=== PATIENT | female | born 2000 | race Caucasian/White ===

== ENCOUNTER 2018-01-29 12:10 | Emergency (ER) | payer MEDICAID ==
[2018-01-29 12:35] VITALS: BP 139/88
--- NOTE | 2018-01-29 12:35 | EDPHY ---
H & P Time Seen by Provider: 01/29/18 12:29 HPI/ROS: Chief Complaint: Right leg rash HPI: 18-year-old woman developed a rash on her right lower leg over the last day or 2. Patient states she had a mosquito bite there was itching it. Since that time she has had redness and some crusting. She has concerns infected. No other complaints at this time ROS: 10 point Review of Systems is negative except as noted in the HPI. PMH: Denies Social History: No smoking, no alcohol, no recreational drug use Family History: non-contributory Physical Exam: General: Awake, alert, no acute distress Right leg: She has got area of excoriated skin with some surrounding erythema on her right stearns. It is warm to touch. There is no lymphangitic streaking. She is neurologically intact distally. Cap refills less than 2 sec. Sensations intact. Skin: Per right leg exam - Medical/Surgical History Other PMH: med hx-none. surg-none - Social History Smoking Status: Never smoked Constitutional: Initial Vital Signs Temperature (C) 36.7 C 01/29/18 12:33 Heart Rate 98 01/29/18 12:33 Respiratory Rate 16 01/29/18 12:33 Blood Pressure 139/88 H 01/29/18 12:33 O2 Sat (%) 99 01/29/18 12:33 O2 Delivery Mode Room Air Allergies/Adverse Reactions: No Known Allergies Allergy (Verified 09/06/15 12:33) Home Medications: Medication Instructions Recorded Cephalexin [Keflex (*)] 500 mg PO Q6H #40 cap 01/29/18 Medical Decision Making ED Course/Re-evaluation: 18-year-old with cellulitis on her right stearns. Will start on Keflex. Will refer to [facility] for outpatient follow-up. Departure - Departure Disposition: Home, Routine, Self-Care Clinical Impression: Cellulitis Condition: Good Instructions: Cellulitis (ED) Additional Instructions: Please take your full course of antibiotics. Follow up at [facility] and 4-5 days for recheck. Return to the emergency department for increasing redness, pain, burning, fevers , chills, or any other concerns. Referrals: PAULINE KHALIL,. [Clinic] - As per Instructions Prescriptions: Cephalexin [Keflex (*)] 500 mg PO Q6H #40 cap
[2018-01-29] MEDS ORDERED: CEPHALEXIN 500 MG CAP PO ONE (12:51)
== END 2018-01-29 13:04 | disposition home or self-care (01) ==
LOC: CED 12:10
DX: L03.115 Cellulitis of right lower limb (principal)

== ENCOUNTER 2018-03-15 12:37 | Inpatient (IN) | payer MEDICAID ==
[2018-03-15] MEDS ORDERED: BISACODYL 10 MG SUPP PR PRN (17:17)
[2018-03-15] MEDS ORDERED: hydrOXYzine HCL 25 MG TAB PO PRN (17:17)
--- NOTE | 2018-03-15 18:44 | GHP ---
POST ADMISSION PHYSICIAN EVALUATION AND REHABILITATION TREATMENT PLAN DATE OF ADMISSION: 03/15/2018 REFERRING FACILITY: [facility] REFERRING PHYSICIAN: Bertrand Lyons MD IMPAIRMENT GROUP: 3.4. DATE OF ONSET: 02/25/2018. CONSULTING PHYSICIANS: She was managed by the Hospitalist Service. She was seen by the Psychiatry Service. REHABLITATION DIAGNOSIS: Guillain-Friedensburg syndrome. ETIOLOGIC DIAGNOSIS: Guillain-Friedensburg syndrome. HISTORY OF PRESENT ILLNESS: This patient is a 18-year-old woman with a history of IV drug abuse who was admitted to [facility] on 2017, with weakness, numbness, and tingling in the lower and upper extremities and difficulty walking. Evaluation included MR imaging of the spine and the brain, HIV testing and lumbar puncture and analysis of cerebrospinal fluid. She was diagnosed with Guillain-Friedensburg syndrome. She was treated with two 5-day courses of IVIG, initially on 02/28/2018. Hospital course was complicated by acute on chronic low back pain requiring pain control, which was a complex topic given her history of addiction and anxiety and panic attacks. She was on IV opiates initially, and these were discontinued 1 day prior to her discharge to inpatient rehabilitation. OTHER LABS AND STUDIES: CBC done on the day of admission was normal but for an elevated white blood cell count at 13.15. Comprehensive metabolic profile was normal. Creatine kinase was very slightly elevated. Urine drug screen was positive for opiates, but otherwise negative for substances of abuse. Serum toxicology screen was negative for acetaminophen or alcohol. She had normal salicylate level. Erythrocyte sedimentation rate was 14. test was negative. HIV was nonreactive. Whole blood lactate was normal at 1.4. T4 was normal. TSH was normal. She had an elevated CSF protein at 171. Urinalysis was cloudy with bacteria present and small leukocyte esterase. I do not have the results of a urine culture, but presumably that was negative. She eventually had a good response to IVIG and has recovered considerable strength and can now ambulate. PRECAUTIONS: She is a fall risk. ACTIVE COMORBIDITIES: She has no tier 1, tier 2, or tier 3 comorbidities. PAST MEDICAL HISTORY: 1. Hematoma on her right medial ankle caused by attempted drug injection. 2. History of IV drug abuse with heroin. 3. Bacterial vaginosis. 4. Cellulitis. 5. Chlamydia STD PAST SURGICAL HISTORY: She has not had prior surgery. PREHOSPITAL MEDICATIONS: I do not have a list. ADMISSION MEDICATIONS: 1. Acetaminophen 1000 mg p.o. q.8 hours p.r.n. 2. Amitriptyline 50 mg p.o. at bedtime. 3. Bisacodyl suppository 10 mg [place] p.r.n. 4. Clonazepam 1 mg p.o. twice daily p.r.n. 5. Enoxaparin 40 mg subcutaneous daily. 6. Gabapentin 600 mg p.o. three times daily. 7. Hydromorphone 2 mg p.o. q.6 hours p.r.n. 8. Hydroxyzine 25 mg p.o. q.6 hours p.r.n. 9. Ibuprofen 400 mg p.o. q.8 hours p.r.n. 10. Lidocaine patch apply daily. 11. Melatonin 5 mg p.o. at bedtime. 12. Nicotine patch 14 mg transdermal daily. 13. Oxycodone continuous release 10 mg p.o. q.12 hours. 14. Polyethylene glycol 17 g p.o. daily p.r.n. 15. Senna/docusate 1 p.o. twice daily. 16. Venlafaxine 37.5 mg p.o. twice daily. ALLERGIES: There are no known drug allergies. PSYCHOSOCIAL HISTORY: She has a history of heroin addiction and IV drug abuse. She has a history of tobacco smoking. 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 She lives with her mother. She has a boyfriend. FAMILY HISTORY: Noncontributory. REVIEW OF SYSTEMS: She reports considerable increased strength and is able to ambulate using a walker. She has mid back pain. She says it is stabbing in nature, but does not radiate. It is not positional. She says it is at a constant 8/10. She denies opiate side effects including no constipation and no dry mouth. She no longer has any symptoms of opiate withdrawal. She is continuing to have anxiety and panic attacks, and is using the clonazepam on a p.r.n. basis. She has no cough or dyspnea and no fevers or chills. Otherwise, a 10-point review of systems is negative. PHYSICAL EXAMINATION: VITAL SIGNS: Are not yet available in the chart. GENERAL: This is a well-nourished, well-developed woman, appears her chronologic age, sitting up on the edge of the bed, dressed in street clothes, cooperative, and in no acute distress. HEENT: Extraocular movements are intact. Pupils are equal, round, and reactive to light. Mucous membranes are moist. Dentition is in good condition. She has an uncrowded airway, Mallampati class I. NECK: Supple. HEART: There is a regular rate and rhythm with no murmurs, rubs, or gallops. LUNGS: Clear to auscultation bilaterally. ABDOMEN: Soft, nontender, nondistended with normoactive bowel sounds. EXTREMITIES: There is no cyanosis, clubbing, or edema. NEUROLOGIC: She is alert and oriented x3. Cranial nerves 2-12 are grossly intact. Sensation is intact to light touch. Regarding motor strength, her hand millwright apprentice bilaterally are 5/5, her biceps are 5/5, her deltoids are 4/5 and her triceps are 3/5, her hip flexors are 3/5, her quadriceps are 5/5 and her hamstrings are 4/5. Deep tendon reflexes are globally hypoactive. SKIN: She has ecchymosis and ulceration in her left medial ankle covered by bandage with minimal drainage. CURRENT LEVEL OF FUNCTION PER THE PRE-ADMISSION SCREEN: Regarding diet, feeding and swallowing, she needed setup and supervision. Grooming required setup and supervision. Dressing upper body required setup and supervision and lower body required setup and supervision. She needed assistance for toileting. She was continent of bowel and bladder. For bed mobility, she had modified independence. She was able to transfer with minimal assist to a wheelchair with a drop arm using a squat pivot technique. For equipment, she used a drop-arm commode, a tub transfer bench and a wheelchair. Seated balance required minimal assist. Static balance required standby assist. Endurance was poor to fair. Gait required minimal to maximal assistance of 2 with voice cues. She was able to ambulate 100 feet with a Golvo lift and an ambulation sling. She could self-propel a wheelchair without cues. She was considered a fall risk, and she was noted to have decreased fine motor and gross motor coordination. On the current exam, she appears to have improved strength. She is able to stand up independently, and ambulates with a walker. IMPRESSION: This patient is a 18-year-old woman with a 4-year history of IV opiate abuse who has Guillain-Friedensburg syndrome. She was hospitalized on February 25. She received IVIG initially on February 28 and then a second 5-day course subsequently. She reports that she was beginning to have difficulty swallowing and potentially with breathing until she began to improve, and subsequently, she has had rapid improvement. There was a Psychiatry consult done where she was found to have Bucklin II traits. She went through opiate withdrawal and continues on [id number] dose opiates for pain control. Her pain condition is back pain, and it is unclear whether this is truly neuropathic or musculoskeletal or whether she is seeking continued opiate use. She, however, reports that having had this near experience, she is no longer going to use opiates of any kind. She has anxiety and panic attacks which have been treated with clonazepam and on hospital discharge, she is to begin venlafaxine. The psychiatric advanced manufacturing consultant's note recommended tapering the clonazepam by 0.5 mg of her daily dose per week. She is otherwise stable and appropriate for inpatient rehabilitation. Her goal is to complete a rehabilitation stay and discharge home with her family and supportive services. For a safe discharge, she will need to be independent with eating, grooming, and bed mobility. She will need to achieve modified independence for transfers, bathing, dressing, and ambulation on level and unlevel surfaces with the least restrictive device for household distances. She may require the use of a wheelchair pending progress, especially when she is fatigued or with community distances. She will have therapy with physical therapy and occupational therapy for 90 minutes per day for each discipline on 5-7 days of the week. Her expected duration of stay is 7-10 days. It is anticipated that upon discharge, she will continue to benefit from home health services including nursing, occupational therapy, and physical therapy. PLAN: 1. Weakness and debility due to Guillain-Friedensburg syndrome. She has had considerable improvement in recent days. She will have PT and OT to optimize her mobility and activities of daily living toward the independent or modified independent level. 2. Opiate addiction. She will need to be referred to appropriate addiction specialists. 3. Pain management complicated by history of addiction. Continue her opiates but change from oxycodone continuous release 10 mg twice daily to morphine SR 15 mg twice daily as the continuous release oxycodone is unlikely to be covered by Medicaid. Continue hydromorphone 2 mg q.6 hours p.r.n. It is likely the hydromorphone does not last 6 hours. We will consider increasing the frequency. Will increase gabapentin from 600 mg three times daily to 900 mg three times daily. Additionally, will continue amitriptyline at 50 mg at bedtime. The gabapentin and the amitriptyline would be appropriate to treat neuropathic pain. 4. Anxiety and PTSD, discussed by the psychiatry advanced manufacturing consultant. Continue clonazepam 1 mg twice daily p.r.n. and consider tapering. Initiate venlafaxine at 37.5 mg twice daily and consider titrating. 5. Tobacco dependence. Continue nicotine replacement. 6. Constipation. Continue bowel protocol. 7. Prophylaxis. She is at elevated risk of DVT. Continue enoxaparin until her mobility considerably improves. 8. Followup. She is to follow up with neurologist, Dr. Lyons, in approximately 2-3 weeks. She is to have followup thyroid studies, as the discharge summary reports that labs were consistent with subclinical hypothyroidism, in 2-3 weeks. She will be referred to substance abuse treatment after her discharge. /[id number]/MODL MTDD
[2018-03-15] MEDS: AMITRIPTYLINE HCL 50 MG TAB PO SCH (20:15)
[2018-03-15] MEDS: morphINE SR 15 MG TAB PO SCH (20:15)
[2018-03-15] MEDS: GABAPENTIN 300 MG CAP PO SCH (20:15)
[2018-03-15] MEDS: SENNOSIDES/DOCUSATE SODIUM TAB PO SCH (20:15)
[2018-03-15] MEDS: clonazePAM 1 MG TAB PO PRN (20:15)
[2018-03-15] MEDS: VENLAFAXINE HCL 37.5 MG TAB PO SCH (20:17)
[2018-03-15] MEDS: HYDROmorphONE/DILAUDID 2 MG TAB PO PRN (23:15)
[2018-03-15] MEDS: MELATONIN 3 MG TAB PO PRN (23:17)
[2018-03-15] MEDS: ACETAMINOPHEN 500 MG TAB PO PRN (23:36)
[2018-03-16] MEDS: morphINE SR 15 MG TAB PO SCH ×2 (09:18→20:53)
[2018-03-16] MEDS: GABAPENTIN 300 MG CAP PO SCH ×3 (09:18→20:53)
[2018-03-16] MEDS: LIDOCAINE 4%/MENTHOL 1% PATCH TD SCH (09:19)
[2018-03-16] MEDS: clonazePAM 1 MG TAB PO PRN ×2 (09:24→20:54)
[2018-03-16] MEDS: ACETAMINOPHEN 500 MG TAB PO PRN ×2 (09:25→19:07)
[2018-03-16] MEDS: IBUPROFEN 200 MG TAB PO PRN ×2 (09:25→19:07)
--- NOTE | 2018-03-16 09:33 | SOAPPROG ---
SOAP Progress Note Assessment/Plan: Assessment: Weakness and debility due to Guillain-Raphine syndrome. She has had considerable improvement in recent days. She will have PT and OT to optimize her mobility and activities of daily living toward the independent or modified independent level. Opiate addiction. She will need to be referred to appropriate addiction specialists. Pain management complicated by history of addiction. Continue her opiates but change from oxycodone continuous release 10 mg twice daily to morphine SR 15 mg twice daily as the continuous release oxycodone is unlikely to be covered by Medicaid. Continue hydromorphone 2 mg q.6 hours p.r.n. I increased gabapentin from 600 mg three times daily to 900 mg three times daily starting at bedtime dose 03/15/2018. Continue amitriptyline at 50 mg at bedtime. * Reviewed hospital MAR. On 03/13/2018 she received 12 mg of IV hydromorphone and 12 mg of p.o. Hydromorphone on 03/14/2018 she received 4 mg of IV hydromorphone and 8 mg of p.o. Hydromorphone. The dose from 03/14/2018 equals approximately 90 mg morphine equivalents. So from 03/16 to 02/13 2018 has been a rapid opiate taper. Will re-evaluate after she gets her AM hydromorphone today 03/16/2018. Anxiety and PTSD, discussed by the psychiatry performance test consultant. Continue clonazepam 1 mg twice daily p.r.n. and consider tapering by 0.5 mg per week. Initiate venlafaxine at 37.5 mg twice daily and consider titrating. Tobacco dependence. Continue nicotine replacement. Constipation. Continue bowel protocol. Responding. Prophylaxis. She is at elevated risk of DVT. Continue enoxaparin until her mobility considerably improves. Followup. She is to follow up with neurologist, Dr. Lyons, in approximately 2 -3 weeks. She is to have followup thyroid studies, as the discharge summary reports that labs were consistent with subclinical hypothyroidism, in 2-3 weeks. She will be referred to substance abuse treatment after her discharge. 03/16/18 09:51 Subjective: C/O back pain 04/17. Slept well; requested extra hydromorphone dose at bedtime which was not given. Has not yet received hydromorphone this morning. Denies fevers/chills, cough, dyspnea, nausea, vomiting, constipation, diarrhea. Good appetite. Objective: Vital Signs Temp Pulse Resp BP Pulse Ox 36.6 C 80 12 89/52 L 95 03/16/18 07:59 03/16/18 07:59 03/16/18 07:59 03/16/18 07:59 03/16/18 07:59 03/15/18 03/16/18 03/17/18 05:59 05:59 05:59 Intake Total 350 Output Total 1000 Balance -650 ICD10 Worksheet Patient Problems: Problems Problem Status Onset Guillain Castellon syndrome Acute Opiate dependence, continuous Acute - ICD10 Problem Qualifiers (1) Guillain Castellon syndrome (2) Opiate dependence, continuous
--- NOTE | 2018-03-16 09:34 | PDOREHIP ---
Admission [facility] - Admission - 3 Day Assessment Period Admission Date/Day 1: 03/15/18 Day 2: 03/16/18 Day 3: 03/17/18 - Active Diagnoses Comorbidities and Co-existing Conditions at Admission: [id number]. None of the Above - Skin Conditions Unhealed Pressure Ulcer (1 or more/Stage 1 or >)-Admission: 0. No
[2018-03-16] MEDS: NICOTINE 14 MG/24 HR PATCH TD SCH (10:14)
[2018-03-16] MEDS: VENLAFAXINE HCL 37.5 MG TAB PO SCH ×2 (10:16→20:54)
[2018-03-16] MEDS: ENOXAPARIN 40 MG/0.4 ML SYR SC SCH (10:17)
[2018-03-16] MEDS: SENNOSIDES/DOCUSATE SODIUM TAB PO SCH ×2 (10:17→20:53)
[2018-03-16] MEDS: HYDROmorphONE/DILAUDID 2 MG TAB PO PRN ×3 (10:20→19:06)
[2018-03-16] MEDS: POLYETHYLENE GLYCOL 3350 17 GM PKT PO PRN (18:06)
[2018-03-16] MEDS: AMITRIPTYLINE HCL 50 MG TAB PO SCH (20:54)
[2018-03-16] MEDS: MELATONIN 3 MG TAB PO PRN (20:54)
[2018-03-17] MEDS: GABAPENTIN 300 MG CAP PO SCH ×3 (09:30→20:56)
[2018-03-17] MEDS: SENNOSIDES/DOCUSATE SODIUM TAB PO SCH ×2 (09:31→20:55)
[2018-03-17] MEDS: morphINE SR 15 MG TAB PO SCH ×2 (09:31→20:55)
[2018-03-17] MEDS: VENLAFAXINE HCL 37.5 MG TAB PO SCH ×2 (09:31→20:56)
[2018-03-17] MEDS: HYDROmorphONE/DILAUDID 2 MG TAB PO PRN ×3 (09:31→17:30)
[2018-03-17] MEDS: NICOTINE 14 MG/24 HR PATCH TD SCH (09:32)
[2018-03-17] MEDS: ENOXAPARIN 40 MG/0.4 ML SYR SC SCH (09:32)
[2018-03-17] MEDS: LIDOCAINE 4%/MENTHOL 1% PATCH TD SCH (09:38)
[2018-03-17] MEDS: ACETAMINOPHEN 500 MG TAB PO PRN ×2 (09:48→17:31)
[2018-03-17] MEDS: IBUPROFEN 200 MG TAB PO PRN ×2 (09:50→17:31)
--- NOTE | 2018-03-17 14:36 | SOAPPROG ---
SOAP Progress Note Assessment/Plan: Assessment: Weakness and debility due to Guillain-Ivor syndrome. She has had considerable improvement in recent days. She will have PT and OT to optimize her mobility and activities of daily living toward the independent or modified independent level. Opiate addiction. She will need to be referred to appropriate addiction specialists. Pain management complicated by history of addiction. Continue her opiates but change from oxycodone continuous release 10 mg twice daily to morphine SR 15 mg twice daily as the continuous release oxycodone is unlikely to be covered by Medicaid. Continue hydromorphone 2 mg q.6 hours p.r.n. I increased gabapentin from 600 mg three times daily to 900 mg three times daily starting at bedtime dose 03/15/2018. Continue amitriptyline at 50 mg at bedtime. * Reviewed hospital MAR. On 03/13/2018 she received 12 mg of IV hydromorphone and 12 mg of p.o. Hydromorphone on 03/14/2018 she received 4 mg of IV hydromorphone and 8 mg of p.o. Hydromorphone. The dose from 03/14/2018 equals approximately 90 mg morphine equivalents. So from 03/16 to 02/13 2018 has been a rapid opiate taper. * Increased hydromorphone dosing from 2 mg Q 6 hr p.r.n. to 4 mg q.4 hours p.r.n. Used 4 doses for a total of 16 mg in past 24 hr as of mid-afternoon on 03/17/2018. Anxiety and PTSD, discussed by the psychiatry teamcenter consultant. Continue clonazepam 1 mg twice daily p.r.n. and consider tapering by 0.5 mg per week. Initiate venlafaxine at 37.5 mg twice daily and consider titrating. Tobacco dependence. Continue nicotine replacement. Constipation. Continue bowel protocol. Responding. Prophylaxis. She is at elevated risk of DVT. Continue enoxaparin until her mobility considerably improves. Followup. She is to follow up with neurologist, Dr. Lyons, in approximately 2 -3 weeks. She is to have followup thyroid studies, as the discharge summary reports that hospital labs were consistent with subclinical hypothyroidism, in 2 -3 weeks. She will be referred to substance abuse treatment after her discharge. 03/17/18 14:33 Subjective: Still has back pain. Slept well. She says her mother stayed with her in the room which lessened her anxiety. Walking much better. Objective: Vital Signs Temp Pulse Resp BP Pulse Ox 36.7 C 100 14 99/62 L 98 03/17/18 08:00 03/17/18 08:00 03/17/18 08:00 03/17/18 08:00 03/17/18 08:00 03/16/18 03/17/18 03/18/18 05:59 05:59 05:59 Intake Total 350 740 240 Output Total 1000 Balance -650 740 240 Physical Exam - Physical Exam General Appearance: WD/WN, alert, no apparent distress Respiratory: No respiratory distress, No accessory muscle use Skin: normal color, warm/dry Neuro/Psych: alert, normal mood/affect, oriented x 3, other (Ambulating with step through pattern using a 4 wheeled walker.) ICD10 Worksheet Patient Problems: Problems Problem Status Onset Guillain Castellon syndrome Acute Opiate dependence, continuous Acute - ICD10 Problem Qualifiers (1) Guillain Castellon syndrome (2) Opiate dependence, continuous
[2018-03-17] MEDS: POLYETHYLENE GLYCOL 3350 17 GM PKT PO PRN (17:36)
[2018-03-17] MEDS: clonazePAM 1 MG TAB PO PRN (19:27)
[2018-03-17] MEDS: AMITRIPTYLINE HCL 50 MG TAB PO SCH (19:27)
[2018-03-17] MEDS: MELATONIN 3 MG TAB PO PRN (20:55)
[2018-03-18] MEDS: HYDROmorphONE/DILAUDID 2 MG TAB PO PRN ×3 (07:21→20:33)
[2018-03-18] MEDS: GABAPENTIN 300 MG CAP PO SCH ×3 (09:40→21:07)
[2018-03-18] MEDS: SENNOSIDES/DOCUSATE SODIUM TAB PO SCH ×2 (09:41→20:27)
[2018-03-18] MEDS: morphINE SR 15 MG TAB PO SCH ×2 (09:41→20:26)
[2018-03-18] MEDS: VENLAFAXINE HCL 37.5 MG TAB PO SCH ×2 (09:41→20:27)
[2018-03-18] MEDS: NICOTINE 14 MG/24 HR PATCH TD SCH (09:41)
[2018-03-18] MEDS: LIDOCAINE 4%/MENTHOL 1% PATCH TD SCH (09:42)
[2018-03-18] MEDS: clonazePAM 1 MG TAB PO PRN ×2 (09:48→20:34)
[2018-03-18] MEDS: ENOXAPARIN 40 MG/0.4 ML SYR SC SCH (09:55)
[2018-03-18] MEDS ORDERED: ONDANSETRON DISINTEGRATING 4 MG TAB PO PRN (11:16)
--- NOTE | 2018-03-18 11:42 | SOAPPROG ---
SOAP Progress Note Assessment/Plan: Assessment: Weakness and debility due to Guillain-Freeman syndrome. * Initial functional independence measure 100. Ambulated 150 ft with a 4 wheeled walker. Upper body dressing is independent with step setup, lower body dressing is done with modified independence. She accomplished a shower transfer with grab bars. She bathed with modified independence. For toileting she required supervision for transfer. * Continue PT and OT to optimize her mobility and activities of daily living toward the independent or modified independent level. Opiate addiction. She will need to be referred to appropriate addiction specialists. Pain management complicated by history of addiction. Continue her opiates but changed from oxycodone continuous release 10 mg twice daily to morphine SR 15 mg twice daily as the continuous release oxycodone is unlikely to be covered by Medicaid. Continue hydromorphone 2 mg q.6 hours p.r.n. I increased gabapentin from 600 mg three times daily to 900 mg three times daily starting at bedtime dose 03/15/2018. Continue amitriptyline at 50 mg at bedtime. * Reviewed hospital MAR, 03/16/2018. On 03/13/2018 she received 12 mg of IV hydromorphone and 12 mg of p.o. Hydromorphone on 03/14/2018 she received 4 mg of IV hydromorphone and 8 mg of p.o. Hydromorphone. The dose from 03/14/2018 equals approximately 90 mg morphine equivalents. So from 03/14 to 03/16/2018 has been a rapid opiate taper. * Increased hydromorphone dosing from 2 mg Q 6 hr p.r.n. to 4 mg q.4 hours p.r.n. 0n 03/16/2018. Used 4 doses for a total of 16 mg in past 24 hr as of mid- afternoon on 03/17/2018. Anxiety and PTSD, discussed by the psychiatry change consultant. Continue clonazepam 1 mg twice daily p.r.n. and consider tapering by 0.5 mg per week. Initiate venlafaxine at 37.5 mg twice daily and consider titrating. Tobacco dependence. Continue nicotine replacement. Constipation. Continue bowel protocol. Nausea. She thinks it is due to over eating breakfast 03/18/2018. Prescribed ondansetron. May improve if she moved her bowels. Left ankle ulcer as a consequence of drug injection. Unclear regarding duration. Concern for underlying infection including possibility of osteomyelitis, though superficially there is no redness tenderness or purulence so is not consistent with infection. Check CBC and ESR, 03/18/2018. Consider initiating antibiotics. Prophylaxis. She is at elevated risk of DVT. Continue enoxaparin until her mobility considerably improves. DISPOSITION: Attended staffing, 15 min. Discussed with case management, nursing, dietitian, PT, OT. She has improved very rapidly. Plan for discharge home with mother on 03/19/2018. She will need a bath bench. She has been referred to [facility] for methadone maintenance and addiction treatment at their [facility]. She will follow up with Neurology. She case management is arranging a new primary care provider for her. Followup. She is to follow up with neurologist, Dr. Lyons, in approximately 2 -3 weeks. She is to have followup thyroid studies, as the hospital discharge summary reports that hospital labs were consistent with subclinical hypothyroidism, in 2-3 weeks. Her new primary care provider is Dr. Leyva at [facility] in [facility]. She will be referred to substance abuse treatment after her discharge. 03/18/18 14:19 Subjective: Complains of nausea. She thinks she ate too much this morning. No bowel movement yesterday but had bowl movements to prior days. Denies abdominal pain. No fevers or chills. Objective: Vital Signs Temp Pulse Resp BP Pulse Ox 37.1 C 82 14 96/42 L 95 03/18/18 09:15 03/18/18 09:15 03/17/18 18:43 03/18/18 09:15 03/18/18 09:15 03/17/18 03/18/18 03/19/18 05:59 05:59 05:59 Intake Total 830 417 480 Balance 740 345 480 - Time Spent With Patient Time Spent With Patient: Greater than 35 min floor time today, including more than 50% of time in coordination of care during staffing, and counseling patient. Physical Exam - Physical Exam General Appearance: WD/WN, alert, no apparent distress Respiratory: No respiratory distress, No accessory muscle use Abdomen: normal bowel sounds, non-tender, soft, No distended Skin: normal color, warm/dry, other (Left ankle with 0.5 cm ulceration with underlying edema and surrounding dusky colored skin. No erythema. Serosanguineous drainage on the dressing but no purulence. Nontender.) ICD10 Worksheet Patient Problems: Problems Problem Status Onset Guillain Castellon syndrome Acute Opiate dependence, continuous Acute - ICD10 Problem Qualifiers (1) Guillain Castellon syndrome (2) Opiate dependence, continuous
--- NOTE | 2018-03-18 16:11 | PDOREHIP ---
Admission [facility] - Admission - 3 Day Assessment Period Admission Date/Day 1: 03/15/18 Day 2: 03/16/18 Day 3: 03/17/18 Discharge [facility] - Discharge - 3 Day Assessment Period 2 Days Prior to Anticipated Discharge Date: 03/17/18 1 Day Prior to Anticipated Discharge Date: 03/18/18 Anticipated Discharge Date: 03/19/18 - Discharge Skin Conditions Unhealed Pressure Ulcer (1 or more/Stage 1 or >)-Discharge: 0. No
[2018-03-18 18:24] LABS: PLATELET COUNT 276 10^3/uL (150-400)
[2018-03-18] MEDS: AMITRIPTYLINE HCL 50 MG TAB PO SCH (20:26)
[2018-03-18] MEDS: MELATONIN 3 MG TAB PO PRN (21:07)
[2018-03-19] MEDS: clonazePAM 1 MG TAB PO PRN (08:13)
[2018-03-19] MEDS: GABAPENTIN 300 MG CAP PO SCH (08:14)
[2018-03-19] MEDS: morphINE SR 15 MG TAB PO SCH (08:15)
[2018-03-19] MEDS: VENLAFAXINE HCL 37.5 MG TAB PO SCH (08:15)
[2018-03-19] MEDS: SENNOSIDES/DOCUSATE SODIUM TAB PO SCH (08:15)
[2018-03-19] MEDS: NICOTINE 14 MG/24 HR PATCH TD SCH (08:15)
[2018-03-19] MEDS: HYDROmorphONE/DILAUDID 2 MG TAB PO PRN ×2 (08:19→13:53)
[2018-03-19] MEDS: LIDOCAINE 4%/MENTHOL 1% PATCH TD SCH (08:21)
[2018-03-19 09:40] VITALS: BP 98/75
--- NOTE | 2018-03-19 19:01 | GDS ---
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 OTHER DISCHARGE DIAGNOSES: 1. Opiate addiction. 2. Left ankle ulcer. COMPLICATIONS: There were none. PROCEDURES: There were none. CONSULTATIONS: There were none. HISTORY/HOSPITAL COURSE: This patient was admitted from [facility] where she had been treated for Guillain-[place] syndrome. Her care was complicated by a history of opiate addiction and need for pain management for which she was treated with long-acting oxycodone, hydromorphone, and gabapentin. She had considerable improvement after her second course of IVIG in the hospital and was ready for admission to inpatient rehabilitation. She did very well in inpatient rehabilitation. Her functional independence measure on 03/18/2018, was 100, which is consistent with independent function. She had ambulated 150 feet with a 4-wheeled walker. She was independent for upper body dressing and had modified independence using an assistive device for lower body dressing. She was able to do a shower transfer using grab bars, and she was able to bathe with modified independence using an assistive device. She required supervision for toilet transfer. Regarding pain management, her long-acting opiate was changed from oxycodone to morphine continuous release 15 mg twice a day as oxycodone continuous release was unlikely to be covered by her Medicaid insurance after discharge. She was initially on hydromorphone 2 mg p.o. q.6 h. p.r.n. Hospital MAR was reviewed, and she had been receiving considerably larger doses of hydromorphone, both IV and p.o., in the hospital. Hydromorphone dosing was increased to 4 mg q.4 h. p.r.n. On the day before discharge she used a total of 3 doses of 4 mg each. Gabapentin was increased from 600 mg p.o. t.i.d. to 900 mg p.o. t.i.d. The pain that she complained of was back pain. It was unclear whether it was neuropathic. It was unclear whether there was an addictive component, though she was not using the hydromorphone in an addictive manner. Regarding opiate addiction, she was referred to addiction treatment at a methadone clinic after discharge. Left ankle ulceration. She reported that she had used injection drugs into her left ankle prior to her hospitalization and that she had a "blood blister that burst." She had a persistent draining shallow ulceration on her left medial ankle. The drainage was serosanguineous. It was nontender, and there was no erythema or warmth. However, out of concern for the possibility of a cellulitis or an osteomyelitis, a CBC and erythrocyte sedimentation rate were obtained on 03/18/2018. Her white count was normal at 7.13. She had mild anemia with a hemoglobin of 11 and a hematocrit of 32.8. The erythrocyte sedimentation rate was normal at 12, so it was unlikely to be a cellulitis or an osteomyelitis. CONDITION UPON DISCHARGE: Good. DISCHARGE DESTINATION: Home with her mother. DIET: Regular. ACTIVITY: Ad foster. MEDICATIONS UPON DISCHARGE: 1. Acetaminophen 1000 mg scheduled q.8 h. 2. Amitriptyline 50 mg p.o. q.h.s. 3. Bisacodyl suppository daily p.r.n. 4. Clonazepam 1 mg p.o. b.i.d. p.r.n. 5. Gabapentin 900 mg p.o. t.i.d. 6. Hydromorphone 2 to 4 mg p.o. q.4 h. p.r.n. 7. Ibuprofen 400 mg p.o. q.8 h. p.r.n. 8. Melatonin 5 mg p.o. q.h.s. 9. Morphine SR 15 mg p.o. b.i.d. 10. Nicotine patch daily. 11. Ondansetron 4 mg p.o. q.6 h. p.r.n. 12. Polyethylene glycol 17 g p.o. daily. 13. Senna/docusate 1 tablet p.o. b.i.d. 14. Venlafaxine 37.5 mg p.o. b.i.d. ISSUES TO BE ADDRESSED AT FOLLOWUP: 1. Debility due to [place]ain[place] syndrome. She has had considerable improvement. She will follow up with neurologist, Dr. Bertrand Lyons, with an appointment set for May 03 at 1:20 p.m. 2. Opiate addiction. She has been discharged with a 1-week supply of morphine and hydromorphone. She has been referred to the [facility] office in [place] for addiction treatment and for ongoing opiate medically-assisted treatment. 3. Pain management. She has been discharged on acetaminophen, ibuprofen, gabapentin, sustained release morphine, and hydromorphone. She can follow up with her primary care provider for refills and for ongoing pain management. 4. Anxiety and PTSD. She was taking clonazepam 1 mg twice a day, and she took that regularly. Psychiatry customer care voice consultant at the hospital had recommended considering a taper of 0.5 mg per week, and she was initiated on venlafaxine 37.5 mg twice a day. She can follow up with her primary care provider, with consideration of titrating the venlafaxine and tapering the clonazepam. 5. Left ankle ulcer. It is hoped that this will begin to heal. She can follow up once again with her primary care provider. 6. History of subclinical hypothyroidism in the hospital. She should have repeat thyroid studies in approximately 2 to 3 weeks. Copy requested to: [facility] /[id number]/MODL [email or web address]
== END 2018-03-19 14:19 | disposition home or self-care (01) | DRG 860 ==
LOC: BREH 16:02
PROVIDERS: ADMIT Internal Medicine; ATTEND Internal Medicine
PROC: F07M3ZZ Motor Function Treatment of Musculoskeletal System - Whole Body (ICD-10-PCS; principal; 2018-03-15)
PROC: F08Z7ZZ Vocational Activities and Functional Community or Work Reintegration Skills Treatment (ICD-10-PCS; principal; 2018-03-15)
DX: R53.81 Other malaise (principal); G65.0 Sequelae of Guillain-Barre syndrome; F11.20 Opioid dependence, uncomplicated; F17.210 Nicotine dependence, cigarettes, uncomplicated; L97.309 Non-pressure chronic ulcer of unspecified ankle with unspecified severity; F41.9 Anxiety disorder, unspecified; F43.10 Post-traumatic stress disorder, unspecified
CPT/HCPCS: 97110-GO; 97110-GP; 97112-GP; 97116-GP; 97162-GP; 97166-GO; 97530-GO; 97530-GP; 97535-GO; J1650